=== PATIENT | female | born 1985 | race Caucasian/White ===

== ENCOUNTER → 2019-12-30 | Outpatient (CLI) | payer OTHER ==
--- NOTE | 2019-12-31 04:22 | SFUN ---
SLEEP CENTER FOLLOW UP NOTE DATE OF SERVICE: 12/30/2019 This 34-year-old lady had been followed in sleep center for treatment of narcolepsy. HISTORY OF PRESENT ILLNESS/SLEEP-WAKE EVALUATION: The patient has history of narcolepsy, confirmed by multiple sleep latency test on treatment with Adderall presently 5 mg 2 times a day. With this treatment, the patient feels significantly better, but still feels sometimes sleepiness during the day and take additional cup of coffee during the day. [place] Sleepiness Scale today increased to 18. Previously, patient had history of asthma, but no recent episodes or problems. PHYSICAL EXAMINATION: GENERAL: Patient is in no distress. VITAL SIGNS: BP 108/70, HR 64, RR 16, height 5 feet 6 inches, weight 131, BMI 21.1, temperature 98.5, oxygen saturation at room air 99%. Neck 12-1/2 inches in circumference. HEENT: PERRLA, EOMI, evaluation of oropharynx showed tongue protrudes midline. NECK: Supple, no JVD. Thyroid is not palpable. LUNGS: Clear to percussion and to auscultation. Good air exchange. No wheezing or rhonchi. HEART: S1, S2 regular. No murmurs, gallops, or rubs. ABDOMEN: Soft and nontender. Bowel sounds are present. No organomegaly appreciated. EXTREMITIES: No clubbing or cyanosis. MAKEUP SALES CONSULTANT: Awake, alert, and oriented X3. Cranial nerves 2 to 7 intact. There is no fasciculation or atrophy. noted. No focal deficits observed. IMPRESSION: 1. 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 2. History of asthma. 3. History of bronchitis. 4. History of headaches in the past, improved after treatment by her chiropractor. PLAN: 1. Patient will continue taking Adderall 5 mg 2 times a day. 2. Extreme precaution to driving. No driving if feeling sleepiness. 3. Sleep hygiene with regular time in bed for at least 7-1/2 to 8 hours. 4. Daytime naps permitted. 5. Follow-up visit in 4 months. I will maintain prescription for Adderall on a monthly basis. Sincerely, Aaron Varela MD, PhD, FAASM Diplomat of [place] [employer] [place] [employer] Traffic Superintendent of [place] [facility] MMODL / IJN: [id number] /
== END | disposition home or self-care (01) ==
LOC: SLEEP 10:42
PROVIDERS: ATTEND Internal Medicine
DX: G47.419 Narcolepsy without cataplexy (principal); Z87.09 Personal history of other diseases of the respiratory system
CPT/HCPCS: 99211

== ENCOUNTER → 2020-03-27 | Outpatient (CLI) | payer OTHER ==
--- NOTE | 2020-03-28 10:39 | MM ---
Reason for exam: clinical finding. Baseline mammogram. History: Took hormonal contraceptives for 6 years. Indicated problem(s): non-bloody discharge and pain in the left breast. Physical Findings: Nurse did not find any significant physical abnormalities on exam. [facility] Diagnostic Mammo w CAD RACHEL Bilateral CC and MLO view(s) were taken. LM view(s) were taken of the left breast. The breast tissue is heterogeneously dense. This may lower the sensitivity of mammography. Asymmetric density posterior and lateral left CC view shows no persisting abnormality on spot compression. Finding compatible with a global asymmetry. These results were verbally communicated with the patient and result sheet given to the patient on 03/27/20. ASSESSMENT: Incomplete: need additional imaging evaluation, BI-RAD 0 RECOMMENDATION: Ultrasound of the left breast. (as ordered and for white nipple discharge and pain)
--- NOTE | 2020-03-28 10:42 | USB ---
Reason for exam: additional evaluation requested from abnormal screening. History: Took hormonal contraceptives for 6 years. US Breast LT Left complete breast ultrasound includes all four quadrants, the retroareolar region and axilla. Finding demonstrates a 4 x 3 x 4mm oval, cystic, benign lesion at 2 o'clock. These results were verbally communicated with the patient and result sheet given to the patient on 03/27/20. ASSESSMENT: Benign, BI-RAD 2 RECOMMENDATION: Routine screening mammogram of both breasts at age 42. Manage on a clinical basis with regard to skin condition.
== END | disposition home or self-care (01) ==
LOC: RADMAMWWP 14:27
PROVIDERS: ATTEND Family Medicine
DX: N63.20 Unspecified lump in the left breast, unspecified quadrant (principal); N63.10 Unspecified lump in the right breast, unspecified quadrant; N64.52 Nipple discharge; N64.4 Mastodynia
CPT/HCPCS: 77066

== ENCOUNTER → 2020-04-25 | Outpatient (CLI) | payer OTHER ==
--- NOTE | 2020-04-26 11:13 | ECHOF ---
Referral Reason:Z82.49 Family history of ischemic heart disease MEASUREMENTS -------- HEIGHT: 165.1 cm WEIGHT: 63.5 kg BP: RVIDd: 3.0 cm (< 3.3) IVSd: 0.9 cm (0.6 - 1.1) LVIDd: 4.2 cm (3.9 - 5.3) LVPWd: 0.9 cm (0.6 - 1.1) IVSs: 0.9 cm LVIDs: 3.0 cm LVPWs: 0.9 cm LA Diam: 3.1 cm (2.7 - 3.8) LAESV Index (A-L): 21.05 ml/m Ao Diam: 3.1 cm (2.0 - 3.7) AV Cusp: 1.7 cm (1.5 - 2.6) MV EXCURSION: 18.221 mm (> 18.000) MV EF SLOPE: 159 mm/s (70 - 150) EPSS: 0.2 cm MV E Cabrera: 1.01 m/s MV DecT: 153 ms MV A Cabrera: 0.47 m/s MV E/A Ratio: 2.17 RAP: 5.00 mmHg RVSP: 18.99 mmHg FINDINGS -------- Sinus rhythm. LV size, wall thickness and systolic function are normal, with an EF greater than 55%. The left deysi tricular size is normal. The right ventricle is normal in size. The left atrial size is normal. Normal LA size by volume 22+/-6 ml/m2. The right atrial size is normal. The aortic valve is trileaflet, and appears structurally normal. No aortic stenosis or regurgitation. Mild mitral regurgitation is present. Mild tricuspid regurgitation present. Right ventricular systolic pressure is normal at < 35 mmHg. There is no pulmonic regurgitation present. The aortic root size is normal. There is no pericardial effusion. CONCLUSIONS -------- 1. LV size, wall thickness and systolic function are normal, with an EF greater than 55%. 2. The left ventricular size is normal. 3. The right ventricle is normal in size. 4. The left atrial size is normal. 5. Normal LA size by volume 22+/-6 ml/m2. 6. The right atrial size is normal. 7. Mild mitral regurgitation is present. 8. Mild tricuspid regurgitation present. 9. There is no pericardial effusion. CHIEF OF ANESTHESIOLOGY: Ambika Mayer RDCS
== END | disposition home or self-care (01) ==
LOC: RADECHMAIN 11:36
PROVIDERS: ATTEND Family Medicine
DX: Z13.6 Encounter for screening for cardiovascular disorders (principal); I08.1 Rheumatic disorders of both mitral and tricuspid valves; Z82.49 Family history of ischemic heart disease and other diseases of the circulatory system
CPT/HCPCS: 93306

== ENCOUNTER → 2020-04-27 | Outpatient (CLI) | payer OTHER ==
--- NOTE | 2020-04-27 16:17 | SFUN ---
SLEEP CENTER FOLLOW UP NOTE DATE OF SERVICE: 04/27/2020 This is a 35-year-old lady has been followed in Sleep Center for treatment of narcolepsy which has been confirmed by multiple sleep latency test. At present, patient is on treatment with Adderall 5 mg twice a day. The patient reports that with this medication she feels better. She usually takes 2 tablets in the morning and this, according to her, is the best regimen. She still may feel some sleepiness and tiredness during the day, but usually with additional coffee drinks she feels okay. [place] Sleepiness Scale is 14. She has started to sleep better during the night while taking Adderall. During her previous visit, her [place] Sleepiness Scale was 18. PHYSICAL EXAMINATION: GENERAL: A pleasant patient in no distress. VITAL SIGNS: BP 114/74, HR 66, RR 15, height 5 feet 6 inches, weight 140, BMI 22.5, temperature 98.0, oxygen saturation at room air 98%. HEENT: PERRLA, EOMI. Evaluation of oropharynx showed tongue protrudes midline. NECK: Supple. No JVD. Thyroid is not palpable. LUNGS: Clear to percussion and to auscultation. Good air exchange. No wheezing or rhonchi. HEART: S1, S2 regular. No murmurs, gallops or rubs. ABDOMEN: Soft, nontender. No organomegaly. Bowel sounds are heard in all four quadrants. EXTREMITIES: No clubbing or cyanosis. ASSOCIATE GENETICS PROFESSOR: Awake, alert, and oriented X3. Cranial nerves 2 to 7 intact. There is no fasciculation or atrophy. noted. No focal deficits observed. IMPRESSION: 1. 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 2. History of asthma. 3. History of bronchitis. 4. History of headaches in the past, improved by chiropractor treatment. PLAN: 1. Patient continues to take Adderall. I will change her prescription to 10 mg once a day tablet in the morning. 2. I again discussed with the patient extreme precautions related to driving. The patient promised to follow recommendations. She is aware of civil and criminal liability for unsafe driving. 3. Sleep hygiene with regular time in bed for at least 7-1/2 to 8 hours. 4. Daytime naps permitted. 5. Follow-up visit in 3 months. 6. I will maintain prescription for Adderall. Thank you very much for allowing me to participate in the management of your patient. Sincerely, Aaron Varela MD, PhD, FAASM Diplomat of [employer] Specialties [employer] of [employer] Medicine Sink Cutter of [facility] [place] UZMA / SAJI: [id number] /
== END | disposition home or self-care (01) ==
LOC: SLEEP 10:22
PROVIDERS: ATTEND Internal Medicine
DX: G47.419 Narcolepsy without cataplexy (principal); Z87.09 Personal history of other diseases of the respiratory system

== ENCOUNTER → 2020-07-27 | Outpatient (CLI) | payer OTHER ==
--- NOTE | 2020-07-27 16:48 | SFUN ---
SLEEP CENTER FOLLOW UP NOTE DATE OF SERVICE: 07/27/2020 This 35-year-old lady has been followed in the sleep center for treatment of narcolepsy, type 2. The patient is on treatment with Adderall. Previously she took 5 mg twice a day, and now she prefers to take 10 mg in the morning. With this regimen she feels better. [place] Sleepiness Scale today is 10. During her previous visit it was around 18. No episodes of cataplexy. No side effects of Adderall. PHYSICAL EXAMINATION: GENERAL: A pleasant patient in no distress. VITAL SIGNS: BP 105/69, HR 83, RR 14, height 5 feet 6 inches, weight 145.4, temperature 98.3, oxygen saturation at room air 96%. HEENT: PERRLA, EOMI. Evaluation of oropharynx showed tongue protrudes midline. NECK: Supple. No JVD. Thyroid is not palpable. LUNGS: Clear to percussion and to auscultation. Good air exchange. No wheezing or rhonchi. HEART: S1, S2 regular. No murmurs, gallops or rubs. ABDOMEN: Soft and nontender. Bowel sounds are present. No organomegaly appreciated. EXTREMITIES: No clubbing or cyanosis. CAREER SERVICES COORDINATOR: Awake, alert, and oriented X3. Cranial nerves 2 to 7 intact. There is no fasciculation or atrophy. noted. No focal deficits observed. IMPRESSION: 1. 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 2. History of asthma. 3. History of bronchitis. 4. History of headaches. 5. History of smoking in the past. PLAN: 1. Patient will continue to take Adderall 10 mg in the morning. 2. Extreme driving precautions. No driving if feeling any sleepiness. 3. Sleep hygiene with regular time bed for at least 8 hours. 4. Daytime naps permitted. 5. Follow-up visit in 4-6 months. I will maintain prescription for Adderall on a monthly basis. Sincerely, Aaron Varela MD, PhD, FAASM Diplomat of [place] [employer] Specialties [place] [employer] of Internal Medicine Bisque Placer of [facility] [place] MMODL / IJN: [id number] /
== END | disposition home or self-care (01) ==
LOC: SLEEP 11:30
PROVIDERS: ATTEND Internal Medicine
DX: G47.419 Narcolepsy without cataplexy (principal); Z87.891 Personal history of nicotine dependence; Z87.09 Personal history of other diseases of the respiratory system; Z86.69 Personal history of other diseases of the nervous system and sense organs

== ENCOUNTER → 2021-02-08 | Outpatient (CLI) | payer OTHER ==
--- NOTE | 2021-02-09 07:33 | SFUN ---
SLEEP CENTER FOLLOW UP NOTE DATE OF SERVICE: 02/08/2021 35-year-old lady has been followed in Sleep Center for treatment of narcolepsy type 2. The patient using medication in the morning to help her to be alert after she wakes up. Her sleep schedule from midnight until 6 a.m. and then she takes medication and she gets out of bed about 7 a.m. On the weekend, she will sleep much longer up to 12 hours. She is on Adderall 10 mg in the morning. [place] Sleepiness Scale today increased to 13. No any side effects from Adderall. No tachycardia. Normal blood pressure. MEDICATIONS: Adderall 10 mg once a day at 6:00 am. PHYSICAL EXAMINATION: Patient in no distress. BP 116/72, HR 70, RR 16, height 5 feet 5-3/4 inches, weight 157.8 pounds, temperature 97.6, oxygen saturation on room air 99%. Body mass index 25.5. HEENT: PERRLA, EOMI, evaluation of oropharynx showed tongue protrudes midline. NECK: Supple, no JVD. Thyroid is not palpable. LUNGS: Clear to percussion and to auscultation. Good air exchange. No wheezing or rhonchi. HEART: S1, S2 regular. No murmurs, gallops, or rubs. ABDOMEN: Soft and nontender. Bowel sounds are present. No organomegaly appreciated. EXTREMITIES: No clubbing or cyanosis. TV TECHNICIAN: Awake, alert, and oriented X3. Cranial nerves 2 to 7 intact. There is no fasciculation or atrophy. noted. No focal deficits observed. IMPRESSION: 1. Narcolepsy type 2 confirmed by multiple sleep latency test in the past. 2. History of asthma. 3. History of bronchitis. 4. History of headaches. 5. History of smoking in the past. PLAN: 1. Patient will continue Adderall 10 mg once a day in the morning. 2. Sleep hygiene with regular time in bed for at least 7 and a half to 8 hours. I again discussed with the patient necessity to increase sleep time. 3. Precautions to driving. No driving if feeling sleepiness. 4. Daytime naps permitted. Aaron Varela MD, PhD, FAASM Diplomat of [place] [employer] Specialties Sleep Medicine Board of [place] Board of Internal Medicine Quilt Sewer of [facility] [place] MMODL / IJN: [id number] /
== END | disposition home or self-care (01) ==
LOC: SLEEP 13:28
PROVIDERS: ATTEND Internal Medicine
DX: Z53.9 Procedure and treatment not carried out, unspecified reason (principal)

== ENCOUNTER → 2021-08-09 | Outpatient (CLI) | payer OTHER ==
--- NOTE | 2021-08-09 16:40 | SFUN ---
SLEEP CENTER FOLLOW UP NOTE DATE OF SERVICE: 08/09/2021 36-year-old lady has been followed in Sleep Center for treatment of narcolepsy, type 2. The patient is on treatment with Adderall 10 mg in the morning and with that regimen patient is able to maintain her alertness during the day without significant problems. [place] Sleepiness Scale today is 8. No side effects of medications. No tachycardia, hypertension or mood problems. MEDICATION: Adderall 10 mg once a day at 6:00 am. PHYSICAL EXAMINATION: GENERAL: Patient in no distress. BP 117/75, HR 74, RR 16, height 5 feet 5-3/4 inches, weight 172 pounds, body mass index 28.1, temperature 98.7, oxygen saturation at room air 98%. HEENT: PERRLA, EOMI, evaluation of oropharynx showed tongue protrudes midline. NECK: Supple, no JVD. Thyroid is not palpable. LUNGS: Clear to percussion and to auscultation. Good air exchange. No wheezing or rhonchi. HEART: S1, S2 regular. No murmurs, gallops, or rubs. ABDOMEN: Soft and nontender. Bowel sounds are present. No organomegaly appreciated. EXTREMITIES: No clubbing or cyanosis. GARDEN WORKER: Awake, alert, and oriented X3. Cranial nerves 2 to 7 intact. There is no fasciculation or atrophy. noted. No focal deficits observed. IMPRESSION: 1. Narcolepsy type 2 confirmed by multiple sleep latency test. The patient is on treatment with Adderall. Normal alertness during the day. 2. History of asthma. 3. History of bronchitis. 4. History of headaches. PLAN: 1. Patient will continue to take Adderall 10 mg once a day. Prescription was written for this months. 2. Sleep hygiene with regular time in bed for at least 7-1/2 to 8 hours. 3. Precautions related to driving. No driving if feeling sleepiness. 4. Daytime naps permitted. Aaron Varela MD, PhD, FAASM Diplomat of [place] [employer] Specialties Sleep Medicine Board of [place] Board of Internal Medicine Cd Manufacturing Supervisor of [facility] [place] MMODL / HENRIETTAN: [id number] /
== END ==
LOC: SLEEP 15:02
PROVIDERS: ATTEND Internal Medicine
DX: G47.419 Narcolepsy without cataplexy (principal); Z87.09 Personal history of other diseases of the respiratory system

== ENCOUNTER → 2022-04-10 | Outpatient (CLI) | payer OTHER ==
--- NOTE | 2022-04-10 13:35 | P.PN ---
Subjective DATE: 04/10/2022 FOLLOW UP VISIT. Patient returned to sleep center for follow-up visit related to treatment of significant excessive daytime sleepiness secondary to narcolepsy. Patient is on treatment with Adderall 10 mg once a day in the morning. With this regimen patient feels that showed alertness is on control. No any side effects of medication. I discussed with her options for additional short naps during the day especially before driving. . [place] sleepiness scale is 14. MEDICATIONS:1. Adderall 10 mg once a day During physical exam: GENERAL: A pleasant patient without any distress. VITAL SIGNS: BP 115/74, HR 68, RR 18 , weight 160.8, temperature 97.4, oxygen saturation at room air 98 . HEENT: PERRLA, EOMI. NECK: Supple. No JVD. LUNGS: Clear to percussion and to auscultation. Good air exchange. No wheezing or rhonchi. HEART: S1, S2 regular. ABDOMEN: Soft and nontender. EXTREMITIES: No clubbing or cyanosis. BUDDER: Awake, alert, and oriented x3. No focal deficit. Impressions: 1. Narcolepsy type II, confirmed by multiple sleep latency test 2. History of asthma. 3. History of bronchitis. 4. History of headaches. Plan: 1. Patient will continue treatment with Adderall 10 mg once a day 2. Sleep hygiene with regular time in bed for at least 8 hours. 3. Daytime naps permitted 4. Precautions related to driving. No driving if feel any sleepiness. Patient is aware about civil and criminal liability for unsafe driving, promised to follow recommendations. 5. Follow up visit in 4-6 months or earlier if patient has any problems. Thank you very much for allowing me to participate in the management of your patient. Aaron Varela MD, PhD, FAASM. Diplomat of [place] Board of Sleep Medicine, Sleep Medicine Board by [place] [employer] of [employer] Medicine Coil Placer of [facility] [place]
== END ==
LOC: SLEEP 13:08
PROVIDERS: ATTEND Internal Medicine
DX: G47.419 Narcolepsy without cataplexy (principal); J45.909 Unspecified asthma, uncomplicated; R51.9 Headache, unspecified; Z87.09 Personal history of other diseases of the respiratory system
CPT/HCPCS: 99212

== ENCOUNTER → 2023-05-08 | Outpatient (CLI) | payer OTHER ==
--- NOTE | 2023-05-08 15:58 | P.PN ---
Subjective DATE: 05/08/2023 FOLLOW UP VISIT. Patient returned to sleep center for follow-up visit related to treatment of significant excessive daytime sleepiness secondary to narcolepsy. Patient is on treatment with Adderall 10 mg once a day in the morning. After taking medication patient feels better for about 5 hours, but then she again developing sleepiness . [place] sleepiness scale is increased to 19. MEDICATIONS:1. Adderall 10 mg once a day During physical exam: GENERAL: A pleasant patient without any distress. VITAL SIGNS: BP 116/75, HR 78, RR 20 , weight 170.2, temperature 98.8, oxygen saturation at room air 98% . HEENT: PERRLA, EOMI. NECK: Supple. No JVD. LUNGS: Clear to percussion and to auscultation. Good air exchange. No wheezing or rhonchi. HEART: S1, S2 regular. ABDOMEN: Soft and nontender. EXTREMITIES: No clubbing or cyanosis. BOAT FUELER: Awake, alert, and oriented x3. No focal deficit. Impressions: 1. Narcolepsy type II, diagnosis confirmed by multiple sleep latency test. 2. History of asthma. 3. History of bronchitis. 4. History of headaches. Plan: 1. Patient will continue treatment with Adderall 10 mg. Patient will take 10 mg of medication first thing in the morning and additional dose 10 mg at around 1-2 PM. 2. Sleep hygiene with regular time in bed for at least 8 hours. 3. Daytime naps permitted 4. Precautions related to driving. No driving if feel any sleepiness. Patient is aware about civil and criminal liability for unsafe driving, promised to follow recommendations. 5. Follow up visit in 4-6 months or earlier if patient has any problems. Thank you very much for allowing me to participate in the management of your patient. Aaron Varela MD, PhD, FAASM. Diplomat of [place] Board of Sleep Medicine, Sleep Medicine Board by [place] Board of Internal Medicine Circuit Court Judge of [facility] [place]
== END ==
LOC: 3 N SLEEP 14:32
PROVIDERS: ATTEND Internal Medicine
DX: G47.419 Narcolepsy without cataplexy (principal); J45.909 Unspecified asthma, uncomplicated; Z86.69 Personal history of other diseases of the nervous system and sense organs

== ENCOUNTER 2023-09-24 21:53 | Emergency (ER) | payer OTHER ==
--- NOTE | 2023-09-24 22:48 | ED ---
Skin/Abscess/FB HPI - General Chief complaint: Skin/Abscess/Foreign Body Stated complaint: rash Time Seen by Provider: 09/24/23 22:13 Source: patient Mode of arrival: ambulatory - History of Present Illness Initial comments: Ramy is a pleasant 38-year-old female who presents ER today for evaluation of painful redness of her right middle finger. Patient notes that she has had 2 days of redness and swelling of this finger and noticed some red spots that look like petechiae today. Patient is concerned because her mother and daughter currently have cellulitis as well and she is concerned that maybe she is colonized with bacteria that is causing other people to become infected because both of them developed cellulitis after 6 using different moisturizers of hers. Patient states she came to the ER because she was hoping to be tested for bacteria that could be causing cellulitis. - Related Data Previous Rx's Medication Instructions Recorded Dextroamphetamine/Amphetamine 10 mg PO DAILY 30 Days #30 tab 06/26/22 [Adderall] Cephalexin [Keflex] 500 mg PO Q6HR 7 Days #28 cap 09/24/23 Allergies Allergy/AdvReac Type Severity Reaction Status Date / Time No Known Allergies Allergy Verified 09/24/23 21:57 Review of Systems ROS Statement: Those systems with pertinent positive or pertinent negative responses have been documented in the HPI. ROS Other: All systems not noted in ROS Statement are negative. Past Medical History Additional Past Medical History / Comment(s): Folliculits, narcolepsy type 2 History of Any Multi-Drug Resistant Organisms: None Reported Past Surgical History: No Surgical Hx Reported Past Psychological History: No Psychological Hx Reported Smoking Status: Former smoker Past Alcohol Use History: Rare Past Drug Use History: None Reported General Exam - General Exam Comments Initial Comments: Physical Exam GENERAL: Patient is well-developed and well-nourished Patient is nontoxic and well-hydrated and is in no distress. HENT: Normocephalic, Atraumatic. EYES: PERRL, EOMI PULMONARY: Unlabored respirations. CARDIOVASCULAR: RRR Warm and well perfused extremities ABDOMEN: Non-distended SKIN: Right middle finger with light erythema, few petechia on dorsal surface : Deferred NEUROLOGIC: Alert and oriented Normal speech Normal gait MUSCULOSKELETAL: Moving all extremities with no apparent injury PSYCHIATRIC: No SI/HI Course Vital Signs 09/24/23 09/24/23 21:57 23:03 Temperature 99.2 F 98.7 F Pulse Rate 82 89 Respiratory 20 16 Rate Blood Pressure 146/86 141/95 O2 Sat by Pulse 97 98 Oximetry Medical Decision Making - Medical Decision Making Was pt. sent in by a medical professional or institution (DIGNA Sawyer, HVAC SHEET METAL INSTALLER, urgent care, hospital, or [facility]...) When possible be specific @ -No Did you speak to anyone other than the patient for history (EMS, parent, family, police, friend...)? What history was obtained from this source @ -No Did you review nursing and triage notes (agree or disagree)? Why? @ -I reviewed and agree with nursing and triage notes Were old charts reviewed (outside hosp., previous admission, EMS record, old EKG, old radiological studies, urgent care reports/EKG's, [facility] records)? Report findings @ -No old charts were reviewed Differential Diagnosis (chest pain, altered mental status, abdominal pain women, abdominal pain men, vaginal bleeding, weakness, fever, dyspnea, syncope, headache, dizziness, GI bleed, back pain, seizure, CVA, palpatations, mental health)? @ -Not applicable EKG interpreted by me (3pts min.). @ -As above X-rays interpreted by me (1pt min.). @ -None done CT interpreted by me (1pt min.). @ -None done U/S interpreted by me (1pt. min.). @ -None done What testing was considered but not performed or refused? (CT, X-rays, U/S, labs)? Why? @ -None What meds were considered but not given or refused? Why? @ -None Did you discuss the management of the patient with other professionals (professionals i.e. DIGNA Sawyer, HVAC SHEET METAL INSTALLER, lab, RT, psych nurse, licensed clinical social worker, wharf laborer, teacher, control officer manager, director case management)? Give summary @ -No Was smoking cessation discussed for >3mins.? @ -No Was critical care preformed (if so, how long)? @ -No Were there social determinants of health that impacted care today? How? (Homelessness, low income, unemployed, alcoholism, drug addiction, transportation, low edu. Level, literacy, decrease access to med. care, intermediate, rehab)? @ -No Was there de-escalation of care discussed even if they declined (Discuss DNR or withdrawal of care, Hospice)? DNR status @ -No What co-morbidities impacted this encounter? (DM, HTN, Smoking, COPD, CAD, Cancer, CVA, ARF, Chemo, Hep., AIDS, mental health diagnosis, sleep apnea, morbid obesity)? @ -None Was patient admitted / discharged? Hospital course, mention meds given and route, prescriptions, significant lab abnormalities, going to OR and other pertinent info. @ -Discharged The patient was seen and evaluated history was obtained from the patient. I do suspect there is an early cellulitis in this finger no signs of tenosynovitis. Advised patient we will start oral antibiotics she can follow-up with her primary care patient is currently undergoing evaluation for possible rheumatoid arthritis I recommended following with primary care for this. I advised patient we do not do any blood test for bacteria and swabbing the skin of the finger will be nondiagnostic therefore no cultures will be obtained today. Patient expressed understanding agreement with this. I advised the patient that if she has persistent pain after antibiotic swelling and redness she can always follow- up with a hand surgeon was provided with contact information for this. Undiagnosed new problem with uncertain prognosis? @ -No Drug Therapy requiring intensive monitoring for toxicity (Heparin, Nitro, Insulin, Cardizem)? @ -No Were any procedures done? @ -No Diagnosis/symptom? @ -Cellulitis right middle finger Acute, or Chronic, or Acute on Chronic? @ -Acute Uncomplicated (without systemic symptoms) or Complicated (systemic symptoms)? @ -Uncomplicated Side effects of treatment? @ -No Exacerbation, Progression, or Severe Exacerbation? @ -No Poses a threat to life or bodily function? How? (Chest pain, [place], [place], pneumonia, PE, COPD, DKA, ARF, appy, cholecystitis, CVA, Diverticulitis, Homicidal, Suicidal, threat to staff... and all critical care pts) @ -No Disposition Clinical Impression: Cellulitis of right middle finger Disposition: HOME SELF-CARE Condition: Stable Instructions (If sedation given, give patient instructions): Cellulitis (ED) Prescriptions: Cephalexin [Keflex] 500 mg PO Q6HR 7 Days #28 cap Is patient prescribed a controlled substance at d/c from ED?: No Referrals: None,Stated [REFERRING] - 1-2 days Nicolasa Beard DO [Doctor of Osteopathic Medicine] - 1-2 days
[2023-09-24] MEDS: CEPHALEXIN 500MG STARTER PACK 4 CAP BTL PO STA (22:57)
[2023-09-24 23:22] VITALS: BP 141/95; PULSE 89; RESP 16; TEMP 98.7
== END 2023-09-24 23:03 | disposition home or self-care (01) ==
LOC: EC 21:53
DX: L03.011 Cellulitis of right finger (principal); Z87.891 Personal history of nicotine dependence
CPT/HCPCS: 99282

== ENCOUNTER → 2023-12-11 | Outpatient (CLI) | payer OTHER ==
[2023-12-11 16:56] VITALS: BP 122/82; PULSE 67; RESP 20; TEMP 98.8
--- NOTE | 2023-12-11 17:03 | P.PROGSL ---
Subjective DATE: 12/11/2023 FOLLOW UP VISIT. Patient returned to sleep center for follow-up visit related to treatment of significant excessive daytime sleepiness secondary to narcolepsy. Patient is on treatment with Adderall 10 mg twice a day. Most of the time she is able to control her alertness during the day with medication. No side effects. [place] sleepiness scale is increased to 17. MEDICATIONS: Please see below During physical exam: GENERAL: A pleasant patient without any distress. VITAL SIGNS: Please see below. HEENT: PERRLA, EOMI. NECK: Supple. No JVD. LUNGS: Clear to percussion and to auscultation. Good air exchange. No wheezing or rhonchi. HEART: S1, S2 regular. ABDOMEN: Soft and nontender. EXTREMITIES: No clubbing or cyanosis. CFO CONTROLLER: Awake, alert, and oriented x3. No focal deficit. Impressions: 1. Narcolepsy type II, confirmed by multiple sleep latency test 2. History of asthma. 3. History of bronchitis. 4. History of headaches. Plan: 1. Patient will continue treatment with Adderall 10 mg twice a day. 2. Sleep hygiene with regular time in bed for at least 8 hours. 3. Daytime naps permitted 4. Precautions related to driving. No driving if feel any sleepiness. Patient is aware about civil and criminal liability for unsafe driving, promised to follow recommendations. 5. Follow up visit in 4-6 months or earlier if patient has any problems. Thank you very much for allowing me to participate in the management of your patient. Aaron Varela MD, PhD, FAASM. Diplomat of [employer], Sleep Medicine Board by [employer] [facility] [place] Objective - Vital Signs Vital Signs: Intake & Output 12/10/23 12/11/23 12/11/23 18:59 06:59 18:59 Weight 76.657 kg Home Medications: Home Medications Medication Instructions Recorded Confirmed Type Cephalexin [Keflex] 500 mg PO Q6HR 7 Days #28 cap 09/24/23 Rx Cephalexin [Keflex] 500 mg PO Q6HR 5 Days #20 cap 12/01/23 Rx Dextroamphetamine/Amphetamine 10 mg PO BID 12/11/23 12/11/23 History [Adderall]
== END ==
LOC: 3 N SLEEP 16:36
PROVIDERS: ATTEND Internal Medicine
DX: G47.419 Narcolepsy without cataplexy (principal); Z87.09 Personal history of other diseases of the respiratory system; Z86.69 Personal history of other diseases of the nervous system and sense organs
CPT/HCPCS: 99212

== ENCOUNTER → 2024-12-30 | Outpatient (CLI) | payer SELFPAY ==
[2024-12-30 15:51] VITALS: BP 113/73; PULSE 78; RESP 16; TEMP 98.2
--- NOTE | 2024-12-30 17:13 | P.PROGSL ---
Subjective DATE: 12/30/2024 FOLLOW UP VISIT. Patient returned to sleep center for follow-up visit related to treatment of significant excessive daytime sleepiness secondary to narcolepsy. Patient is on treatment with Adderall 10 mg twice a day. Patient feels more sleepiness in the first part of the day. Sometimes if she takes medication late it may create problems for her to fall asleep. I discussed with patient considered to continue to take medication with the same dose but take 15 mg in the morning and 5 mg afternoon. . [place] sleepiness scale is increased to 18. MEDICATIONS:1. Adderall 10 mg twice a day During physical exam: GENERAL: A pleasant patient without any distress. VITAL SIGNS: Please see below. HEENT: PERRLA, EOMI. NECK: Supple. No JVD. LUNGS: Clear to percussion and to auscultation. Good air exchange. No wheezing or rhonchi. HEART: S1, S2 regular. ABDOMEN: Soft and nontender. EXTREMITIES: No clubbing or cyanosis. MANAGING DIRECTOR: Awake, alert, and oriented x3. No focal deficit. Impressions: 1. Narcolepsy type II, diagnosis confirmed by multiple sleep latency test 2. History of asthma. 3. History of bronchitis. 4. History of headaches. Plan: 1. Patient will continue treatment with[] 2. Sleep hygiene with regular time in bed for at least 8 hours. 3. Daytime naps permitted 4. Precautions related to driving. No driving if feel any sleepiness. Patient is aware about civil and criminal liability for unsafe driving, promised to follow recommendations. 5. Follow up visit in 4-6 months or earlier if patient has any problems. Thank you very much for allowing me to participate in the management of your patient. Aaron Varela MD, PhD, FAASM. Diplomat of [employer], Sleep Medicine Board by [employer] [facility] [place] Objective - Vital Signs Vital Signs: Vital Signs Temp 98.2 F 12/30/24 15:50 Pulse 78 12/30/24 15:50 Resp 16 12/30/24 15:50 BP 113/73 12/30/24 15:50 Pulse Ox 96 12/30/24 15:50 FiO2 Intake & Output 12/29/24 12/30/24 12/30/24 18:59 06:59 18:59 Weight 81.647 kg Home Medications: Home Medications Medication Instructions Recorded Confirmed Type Cephalexin [Keflex] 500 mg PO Q6HR 7 Days #28 cap 09/24/23 Rx Cephalexin [Keflex] 500 mg PO Q6HR 5 Days #20 cap 12/01/23 Rx Dextroamphetamine/Amphetamine 10 mg PO BID 12/11/23 12/11/23 History [Adderall]
== END ==
LOC: 3 N SLEEP 15:16
PROVIDERS: ATTEND Internal Medicine
DX: G47.419 Narcolepsy without cataplexy (principal); Z87.09 Personal history of other diseases of the respiratory system; Z86.69 Personal history of other diseases of the nervous system and sense organs
CPT/HCPCS: 99212